=== PATIENT | male | born 1970 | race Caucasian/White ===

== ENCOUNTER 2020-03-29 20:18 | Emergency (ER) | payer OTHER ==
[~2020-03-29] VITALS: Ht 175.3 cm; Wt 81.8 kg
[2020-03-29] MEDS ORDERED: valacyclovir 500mg tablet PO STA (20:55)
[2020-03-29 21:09] VITALS: BP 136/80
[2020-03-29] MEDS ORDERED: VALA100031 PO (21:12)
[2020-03-30] MEDS ORDERED: TRIF7.5D5 RIGHTEYE (11:05)
[2020-03-30] MEDS ORDERED: HYDR-3965 PO (23:40)
== END 2020-03-29 21:10 | disposition home or self-care (01) ==
LOC: ER 20:19 → EDBD 20:19 → ER 21:10
DX: B02.9 Zoster without complications (principal); F17.200 Nicotine dependence, unspecified, uncomplicated; Z88.0 Allergy status to penicillin
CPT/HCPCS: 99283

== ENCOUNTER 2020-03-30 09:01 | Emergency (ER) | payer MEDICAID ==
[~2020-03-30] VITALS: Ht 160 cm; Wt 83.0 kg
[~2020-03-30 09:01] MED LIST changes: -HYDR-3965 PO; -TRIF7.5D5 RIGHTEYE; -TRIFLURIDINE 1% RIGHTEYE STA; -ketorolac trometh. 30mg/ml inj. IM ONE; -ketorolac tromethamine 15mg/ml inj. IM ONE; -valacyclovir 500mg tablet PO STA
[2020-03-30 09:27] VITALS: BP 134/90
[2020-03-30] MEDS ORDERED: TRIF7.5D5 RIGHTEYE (11:05)
[2020-03-30] MEDS ORDERED: HYDR-3965 PO (23:40)
== END 2020-03-30 11:15 | disposition home or self-care (01) ==
LOC: ER 09:02
DX: B02.39 Other herpes zoster eye disease (principal); Z72.89 Other problems related to lifestyle; Z88.0 Allergy status to penicillin; Z79.2 Long term (current) use of antibiotics; Z79.899 Other long term (current) drug therapy
CPT/HCPCS: 99281

== ENCOUNTER → 2020-03-30 | Emergency (ER) | payer MEDICAID ==
[~2020-03-30] VITALS: Ht 175.3 cm; Wt 80.0 kg
[~2020-03-30] MED LIST: HYDR-3965 PO; TRIF7.5D5 RIGHTEYE; TRIFLURIDINE 1% RIGHTEYE STA; VALA100031 PO; ketorolac trometh. 30mg/ml inj. IM ONE; ketorolac tromethamine 15mg/ml inj. IM ONE; valacyclovir 500mg tablet PO STA
[2020-03-30 21:40] VITALS: BP 129/87
== END | disposition home or self-care (01) ==
LOC: ER 21:25
DX: B02.9 Zoster without complications (principal); R51 Headache; H02.843 Edema of right eye, unspecified eyelid; Z72.89 Other problems related to lifestyle; Z88.0 Allergy status to penicillin; Z79.2 Long term (current) use of antibiotics; Z79.899 Other long term (current) drug therapy
CPT/HCPCS: 96372; 99283; J1885

== ENCOUNTER 2020-06-14 06:42 | Emergency (ER) | payer MEDICAID ==
[~2020-06-14] VITALS: Ht 172.7 cm; Wt 81.8 kg
[~2020-06-14 06:42] MED LIST changes: +TRIF7.5D5 RIGHTEYE
[2020-06-14] MEDS ORDERED: ketorolac trometh. 30mg/ml inj. IM ONE (06:50)
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
--- NOTE | 2020-06-14 07:39 | NUR ---
Pt provided number for mother Mili, . Attempted to call her, but incorrect number. Person answering phone stated she is not Mili and didn't understand why she was getting so many calls seeking Mili as she indicated having the number for years.
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
[2020-06-14] MEDS ORDERED: LORazepam 2 mg/ml vial IM ONE ×2 (08:00)
[2020-06-14] MEDS ORDERED: diphenhydrAMINE 50 mg/ml inj IM ONE ×2 (08:00)
[2020-06-14] MEDS ORDERED: haloperidol lactate 5mg/ml inj IM ONE ×2 (08:00)
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
[2020-06-14 09:34] LABS: BASOPHILS % (AUTO) 0.2 % (0-1); EOSINOPHILS # (AUTO) 0.1 X10'3 (0-0.9); EOSINOPHILS % (AUTO) 0.9 % (0-6); HEMOGLOBIN 16.2 g/dl (14.0-17.9); LYMPHOCYTES % (AUTO) 11.6 % (21-51); MEAN CORPUSCULAR HEMOGLOBIN 30.4 PG (27.0-31.0); MEAN CORPUSCULAR HGB CONC 33.7 g/dL (33.0-36.5); MEAN CORPUSCULAR VOLUME 90.2 FL (78-98); MEAN PLATELET VOLUME 6.7 FL (7.4-10.4); MONOCYTES # (AUTO) 0.6 X10'3 (0-0.9); MONOCYTES % (AUTO) 6.4 % (2-12); NEUTROPHILS # (AUTO) 7.1 X10'3 (1.8-7.7); NEUTROPHILS % (AUTO) 80.9 % (42-75); PLATELET COUNT 277 X10'3 (140-440); RED BLOOD COUNT 5.33 X10'6 (4.70-6.10); RED CELL DISTRIBUTION WIDTH 12.6 % (11.5-14.5); WHITE BLOOD COUNT 8.8 X10'3 (4.5-11.0)
[2020-06-14 09:52] LABS: BILIRUBIN,TOTAL 1.3 MG/DL (0.1-1.0); BLOOD UREA NITROGEN 15 MG/DL (7-18); BUN/CREATININE RATIO 13.2 (5.4-32.0); CHLORIDE 106 MMOL/L (99-107); CREATININE 1.14 MG/DL (0.60-1.10); GLUCOSE 126 MG/DL (70-104); POTASSIUM 3.6 MMOL/L (3.5-5.1); SODIUM 142 MMOL/L (135-145); eGFR 68 ML/MIN
[2020-06-14 10:02] LABS: ALANINE AMINOTRANSFERASE 29 U/L (12-78); ALBUMIN 4.2 G/DL (3.4-5.0); ALBUMIN/GLOBULIN RATIO 1.3 (1.1-1.5); ALKALINE PHOSPHATASE 67 IU/L (46-116); ANION GAP 9 (8-16); ASPARTATE AMINO TRANSFERASE 25 U/L (10-37); CALCIUM 9.5 MG/DL (8.5-10.1); ETHANOL < 0.010 GM/DL (0.0-0.010); TOTAL PROTEIN 7.5 G/DL (6.4-8.2)
--- NOTE | 2020-06-14 10:18 | NUR ---
Patient sleeping in a supine position without distress.
[2020-06-14 10:45] LABS: URINE AMPHETAMINE SCREEN POSITIVE (Neg); URINE BARBITUATE SCREEN NEGATIVE (Neg); URINE BENZODIAZEPINES SCREEN NEGATIVE (Neg); URINE CANNABINOID SCREEN NEGATIVE (Neg); URINE COCAINE SCREEN NEGATIVE (Neg); URINE METHADONE SCREEN NEGATIVE (Neg); URINE OPIATE SCREEN NEGATIVE (Neg); URINE PHENCYCLIDINE SCREEN NEGATIVE (Neg)
--- NOTE | 2020-06-14 11:56 | NUR ---
Patient continues to sleep.
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
--- NOTE | 2020-06-14 14:41 | NUR ---
Patient continues to sleep.
--- NOTE | 2020-06-14 15:39 | NUR ---
Patient continues to sleep.
--- NOTE | 2020-06-14 19:06 | NUR ---
Pt awake, requesting meal tray. Meal tray ordered from dietary. Pt also requested phone to call his mom. Phone given as requested.
--- NOTE | 2020-06-14 21:18 | NUR ---
PACKET FAXED TO [facility]
--- NOTE | 2020-06-14 21:35 | NUR ---
Pt arrived on unit via W/C accompanied by staff. Pt transfed self into bed 20. Asked to use phone informed phone use only allowed between 8am and 8pm. Pt accepted information without complaint. Denied any needs at this time, provided water pitcher, pt went to sleep.
--- NOTE | 2020-06-14 22:43 | NUR ---
Pt sleeping resp even and unlabored.
--- NOTE | 2020-06-15 01:50 | NUR ---
Pt asleep resp even and unlabored has remained in bed since arrival on unit.
--- NOTE | 2020-06-15 03:54 | NUR ---
Pt continues to sleep resp even and unlabored.
--- NOTE | 2020-06-15 05:32 | NUR ---
Pt awake ambulated independantly to BR.
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
[2020-06-15] MEDS ORDERED: haloperidol lactate 5mg/ml inj IM ONE (06:00)
[2020-06-15] MEDS ORDERED: LORazepam 2 mg/ml vial IM ONE (06:00)
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
[2020-06-15 07:00] VITALS: BP 110/72
--- NOTE | 2020-06-15 07:11 | NUR ---
Restraints removaed. Patient continue sleeping. No distress observed. Continue to monitor.
--- NOTE | 2020-06-15 08:10 | NUR ---
Patient sleeping. No distress observed. Continue to monitor.
--- NOTE | 2020-06-15 10:15 | NUR ---
Patient sleeping on left side. No distress observed. Continue to monitor.
--- NOTE | 2020-06-15 11:01 | NUR ---
TU, Maurilio, speaking to patient. No distress observed. Continue to monitor.
== END 2020-06-15 11:58 | disposition home or self-care (01) ==
LOC: ER 06:42
DX: F29 Unspecified psychosis not due to a substance or known physiological condition (principal); M54.5 Low back pain; Z72.89 Other problems related to lifestyle; Z88.0 Allergy status to penicillin; Z79.2 Long term (current) use of antibiotics; Z79.899 Other long term (current) drug therapy
CPT/HCPCS: 36415; 72070; 72100; 80053; 80305; 80320; 84443; 85025; 93005; 96372; 99285; J1200; J1630; J1885; J2060